=== PATIENT | female | born 1975 | race Caucasian/White ===

== ENCOUNTER 2022-08-26 15:07 | Outpatient (CLI) | payer OTHER, SELFPAY ==
--- NOTE | 2022-08-26 15:20 | CRLHL7_ITS ---
For Patients: As a result of the Century Cures Act, medical imaging exams and procedure reports are released immediately into your electronic medical record. You may view this report before your referring provider. If you have questions, please contact your health care provider. BILATERAL SCREENING MAMMOGRAM WITH COMPUTER-AIDED DETECTION AND TOMOSYNTHESIS TECHNIQUE: CC and MLO views were obtained. These mammographic images have been obtained using full-field digital technique. These mammographic images were interpreted with the benefit of computer-aided detection. Breast tomosynthesis was used in this interpretation. COMPARISON FILM: 07/20/18. FINDINGS: There are scattered areas of fibroglandular density. IMPRESSION: There is no radiographic evidence for malignancy. ASSESSMENT: BI-RADS Category 1: Negative RECOMMENDATION: Routine screening mammogram in 1 year. A lay language report of this examination will be provided to the patient. CHIQUITA OCONNELL M.D. Diagnostic/Breast Radiologist [email or web address] NATE/ross Transcribed: 08/27/2022, 2:[address]/Dictated by: Chiquita Oconnell MD @ 08/27/2022 8:25:00 AM (Electronically Signed)
== END 2022-08-26 15:08 | disposition home or self-care (01) ==
PROVIDERS: PCP Family Medicine; Visit Provider Obstetrics & Gynecology
DX: Z12.31 Encounter for screening mammogram for malignant neoplasm of breast (principal)
CPT/HCPCS: 77063; 77067

== ENCOUNTER 2022-09-25 08:00 | Outpatient (CLI) | payer OTHER, SELFPAY | END 2022-09-25 08:01 | disposition home or self-care (01) | LOC: NFLDREF 09-26 11:05 | PROVIDERS: PCP Family Medicine; Referring Provider Family Medicine; Visit Provider Obstetrics & Gynecology | DX: Z00.00 Encounter for general adult medical examination without abnormal findings (principal); Z79.1 Long term (current) use of non-steroidal anti-inflammatories (NSAID) | CPT/HCPCS: 80048; 80061 ==

== ENCOUNTER 2023-07-21 08:24 | Outpatient (CLI) | payer OTHER, SELFPAY ==
--- NOTE | 2023-07-21 09:24 | W.ANESCHARGE ---
Anesthesia Charges Start Date/Time Anesthesia Start Date: 07/21/23 Anesthesia Start Time: 08:56 Stop Date/Time Anesthesia Stop Date: 07/21/23 Anesthesia Stop Time: 09:23
== END 2023-07-21 08:25 | disposition home or self-care (01) ==
LOC: OP CLINIC 08:25
PROVIDERS: PCP Family Medicine; Visit Provider Internal Medicine
DX: Z12.11 Encounter for screening for malignant neoplasm of colon (principal); K63.5 Polyp of colon; K57.30 Diverticulosis of large intestine without perforation or abscess without bleeding
CPT/HCPCS: 00811; 45385; 88305; J2704